=== PATIENT | female | born 1960 | race Caucasian/White ===

== ENCOUNTER → 2019-11-08 | Outpatient (CLI) | payer BC ==
--- NOTE | 2019-11-08 11:30 | Diagnostic Imaging Report ---
EXAMINATION: MRI of the cervical spine without contrast HISTORY: Status post fall, neck trauma 2 weeks ago, pain, history of RA. COMPARISON: None available TECHNIQUE: Sagittal T1, T2, STIR; axial T2, gradient echo. FINDINGS: Curvature: Reversal of the cervical lordosis with mild kyphosis centered at C5. Grade 1 retrolisthesis at C5-C6. Vertebrae: No evidence of neoplasm, infection, or fracture. Benign hemangioma on the left side of the T4 vertebral body is incidentally noted. Foramen magnum: No mass, Chiari malformation, or basilar invagination. Spinal Cord: Normal size and signal intensity. Soft Tissues: Unremarkable. Degenerative changes: C1-C2 to C4-C5: Unremarkable. C2-C3: Unremarkable. C3-C4: Unremarkable. C4-C5: Minimal symmetric disc bulge without canal or foraminal stenoses C5-C6: Small disc osteophyte complex formation asymmetric to the right, mild bilateral uncovertebral and facet hypertrophy mainly on the right side. Moderate right and mild left foraminal stenoses. Mild canal stenoses. C6-C7: Minimal symmetric disc bulge without canal or foraminal stenoses C7-T1: Unremarkable. IMPRESSION: 1. Mild degenerative spinal canal stenosis at C5-C6. 2. Moderate right and mild left degenerative foraminal stenosis at C5-C6. 3. Reversal of the cervical lordosis with minimal retrolisthesis at C5-C6. 4. No acute post traumatic abnormalities. Signed by: Dr. Jasmin Sanchez M.D. on 11/08/2019 11:27 AM
== END ==
LOC: MRI 09:28
PROVIDERS: ATTEND Family Medicine
DX: M54.12 Radiculopathy, cervical region (principal)
CPT/HCPCS: 72141